=== PATIENT | male | born 1990 | race Two or more races ===

== ENCOUNTER → 2017-07-16 | Outpatient (CLI) | payer OTHER ==
--- NOTE | 2017-07-16 11:36 | RADIOLOGY REPORT (SQ) ---
EXAM DESCRIPTION: U/S RETROPERITON (RENAL/AORTA) COMPLETED DATE/TIME: 07/16/2017 10:53 am REASON FOR STUDY: HTN/JEANNETTE I70.1 ATHEROSCLEROSIS OF RENAL ARTERY COMPARISON: None. TECHNIQUE: Dynamic and static grayscale images acquired of the kidneys and bladder and recorded on P ACS. Additional selected color Doppler and spectral images recorded. LIMITATIONS: None. FINDINGS: RIGHT KIDNEY: 10.5 cm in length. Normal echogenicity. No solid or suspicious masses. No hydronephrosis. No calcifications. LEFT KIDNEY: 11.8 cm in length. Normal echogenicity. No solid or suspicious masses. No hydrone phrosis. No calcifications. BLADDER: No masses. OTHER FINDINGS: No other significant finding. IMPRESSION: NORMAL RENAL AND BLADDER ULTRASOUND. TECHNICAL DOCUMENTATION: JOB ID: [id number] [employer]- All Rights Reserved Reading location - IP/workstation name: [email or web address]
--- NOTE | 2017-07-16 11:38 | RADIOLOGY REPORT (SQ) ---
EXAM DESCRIPTION: U/S LTD DUPLEX ART/JOVANNA FLOW COMPLETED DATE/TIME: 07/16/2017 11:05 am REASON FOR STUDY: HTN/JEANNETTE I70.1 ATHEROSCLEROSIS OF RENAL ARTERY COMPARISON: Renal ultrasound dated 07/16/2017 TECHNIQUE: Realtime and static grayscale images acquired. Selected color Doppler, velocities and spe ctral images recorded. LIMITATIONS: None. FINDINGS: RIGHT KIDNEY: RENAL ARTERY VELOCITIES: 1009.4 cm/sec. Segmental artery velocity 50 cm/sec. RENAL VEIN: Color doppler flow present, patent. VELOCITY RATIO: 1.28. Normal waveforms. KIDNEY: Normal size. No significant pathology. LEFT KIDNEY: RENAL ARTERY VELOCITIES: 86 cm/sec. Segmental artery velocity 81 cm/sec. RENAL VEIN: Color doppler flow present, patent. VELOCITY RATIO: 1.0. Normal waveforms. KIDNEY: Normal size. No significant pathology. BLADDER: Normal. OTHER: No other significant finding. IMPRESSION: NO DOPPLER EVIDENCE OF HEMODYNAMICALLY SIGNIFICANT RENAL ARTERY STENOSIS. COMMENT: NORMAL RENAL ARTERY/AORTA VELOCITY RATIO IS LESS THAN OR EQUAL TO 3.5. TECHNICAL DOCUMENTATION: JOB ID: [id number] [employer] All Rights Reserved Reading location - IP/workstation name: [email or web address]
== END ==
LOC: RAD 09:19
PROVIDERS: ATTEND Nurse Practitioner
DX: I70.1 Atherosclerosis of renal artery (principal)
CPT/HCPCS: 76770; 93976